=== PATIENT | female | born 1980 | race Caucasian/White ===

== ENCOUNTER 2021-09-06 12:21 | Emergency (ER) | payer BC, SELFPAY ==
[2021-09-06 14:01] VITALS: BP 127/73; PULSE 95; RESP 14; TEMP 36.8; O2SAT 100; BMI 23.3
[2021-09-06 14:22] LABS: Apearance,Urine Cloudy (Clear); Color,Urine Yellow (Yellow); Glucose,Urine (UA) Negative (Negative); PH,Urine 8.5 (5.0-8.5); Protein,Urine Trace (Negative); Specific Gravity, Urine 1.015 (1.005-1.030)
[2021-09-06 14:23] LABS: Bilirubin,Urine Negative (Negative); Blood, Urine 2+ (Negative); Ketones,Urine Negative (Negative); UTC Leukocyte Esterase,Urine 2+ (Negative); UTC Nitrate,Urine Negative (Negative); Urobilinogen,Urine 0.2 EU/dl (0.2)
--- NOTE | 2021-09-06 14:35 | HMH.EDUTC ---
[facility] [place] Disposition Clinical Impression: UTI (urinary tract infection) Qualifiers: Urinary tract infection type: site unspecified Hematuria presence: with hematuria Qualified Code(s): N39.0 - Urinary tract infection, site not specified Disposition: Home, Self-Care Condition on Discharge: Good Instructions: Urinary Tract Infection, DI for Urinary Tract Infection (UTI) Additional Instructions: Drink plenty of fluids. Take tylenol or ibuprofen for pain or fever. Take the medications as directed. Follow up with your regular doctor. GO TO THE ER FOR ANY WORSENING SYMPTOMS The pyridium will make your urine turn orange, this is an expected side effect. It will stain your clothes if it comes into contact with them. Prescriptions: Ondansetron [Zofran 4mg ODT] 4 mg PO Q8HP PRN #12 tab PRN Reason: Nausea Transmission Status: Received by [id number] Sulfamethoxazole/Trimethoprim [Bactrim DS tablet] 1 each PO BID 7 Days #14 tab Transmission Status: Received by [id number] Phenazopyridine HCl [Pyridium 200mg Tablet] 200 pow PO TID #6 tab Transmission Status: Received by [id number] Referrals: Herve Johnson MD [Primary Care Provider] - Forms: Work/School Release Time of Disposition: 14:50 Medical Decision Making - Medical Records Medical records reviewed: No: I reviewed the patient's medical records. - Aidan Inquiry Pt receiving controlled substance: No Vital Signs: 09/06/21 14:01 09/06/21 14:53 Temperature 98.2 F 98.2 F Temperature Source Oral Pulse Rate 95 H Pulse Rate [Left] 95 H Respiratory Rate 14 14 Blood Pressure 127/73 Blood Pressure [Right Arm] 127/73 Blood Pressure Mean [Right Arm] 91 02 Sat by Pulse Oximetry 100 - Lab Data Lab results reviewed: Yes: I reviewed the patient's lab results. Lab Results 09/06/21 14:05: Urine Color Yellow, Urine Appearance Cloudy, Urine pH 8.5, Ur Specific [place] 1.015, Urine Protein Trace, Urine Glucose (UA) Negative, Urine Ketones Negative, Urine Blood 2+, Urine Nitrate Negative, Urine Bilirubin Negative, Urine Urobilinogen 0.2, Ur Leukocyte Esterase 2+ A Orders (Tests/Meds): ORDERS Category Date Time Status Urine Culture Stat Micro 09/06/21 14:11 Received [facility] [place] HPI - General Stated complaint: possible uti Time Seen by Provider: 09/06/21 14:35 Mode of Arrival: Ambulatory Source of Information: Patient Limitations: No Limitations Description of Symptoms (Recalled from Triage Doc. by RN): pt c/o urinary urgency, pressure and pain with urination. since yesterday. HEENT Symptoms (Recalled from RN notes): No Resp Symptoms (Recalled from RN notes): No Skin Symptoms (Recalled from RN notes): No MS Symptoms (Recalled from RN notes): No Functional Status (Recalled from RN notes): na - History of Present Illness Provider Complaint: She c/o low back pain and burning with urination for the past 2 days. She gets uti's occasionally. She denies any fever or chills. - Related Data Previous Rx's Medication Instructions Recorded norgestimate-ethinyl estradiol 1 tab PO DAILY #84 tab 12/02/20 0.18 mg/0.215mg/0.25mg-35 mcg(28)tablet Ondansetron [Zofran 4mg ODT] 4 mg PO Q8HP PRN #12 tab 09/06/21 Phenazopyridine HCl [Pyridium 200 pow PO TID #6 tab 09/06/21 200mg Tablet] Sulfamethoxazole/Trimethoprim 1 each PO BID 7 Days #14 tab 09/06/21 [Bactrim DS tablet] Allergies Allergy/AdvReac Type Severity Reaction Status Date / Time Influenza Virus Vaccines Allergy Severe Hives, Verified 01/03/21 16:32 Swelling, Burning sensation in bones morphine Allergy Intermediate UNKNOWN Verified 01/03/21 16:32 - Worker's Comp Is this a Worker's Comp case?: No [facility] History - Hepatitis A Screen Drug use history?: No High risk sexual behaviors?: No History of sexually transmitted infection?: No Currently employed?: No Childcare worker?: No Do you have indoor
[2021-09-06 14:53] VITALS: BP 127/73; PULSE 95; RESP 14; TEMP 36.8
== END 2021-09-06 14:54 | disposition home or self-care (01) ==
PROVIDERS: Emergency Provider Nurse Practitioner Family; PCP Family Medicine
DX: N30.00 Acute cystitis without hematuria (principal)
CPT/HCPCS: 81003; 87086; 87088; 87186; 99202; G0463

== ENCOUNTER → 2022-01-15 10:46 | Outpatient (CLI) | payer BC, SELFPAY ==
--- NOTE | 2022-01-15 12:21 | CT_ITS ---
PROCEDURE INFORMATION: Exam: CT Abdomen And Pelvis Without Contrast Exam date and time: 01/15/2022 12:39 PM Age: 41 years old Clinical indication: Abdominal pain; Localized; Right lower quadrant (rlq); Patient HX: Lower right abd pain. Poss appy. TECHNIQUE: Imaging protocol: Computed tomography of the abdomen and pelvis without contrast. Radiation optimization: All CT scans at this facility use at least one of these dose optimization techniques: automated exposure control; mA and/or kV adjustment per patient size (includes targeted exams where dose is matched to clinical indication); or iterative reconstruction. Other contrast: Oral, gastroview, 20; COMPARISON: No relevant prior studies available. FINDINGS: Liver: Normal. No mass. Gallbladder and bile ducts: Normal. No calcified stones. No ductal dilation. Pancreas: Normal. No ductal dilation. Spleen: Unremarkable. Adrenal glands: Normal. No mass. Kidneys and ureters: Normal. No hydronephrosis. Stomach and bowel: Unremarkable. No obstruction. No mucosal thickening. Appendix: No evidence of appendicitis. Intraperitoneal space: No evidence of free fluid in the cul-de-sac. Vasculature: Unremarkable. No abdominal aortic aneurysm. Lymph nodes: Unremarkable. No enlarged lymph nodes. Urinary bladder: Unremarkable as visualized. Reproductive: Anteverted uterus. Bones/joints: Unremarkable. No acute fracture. Soft tissues: Unremarkable. IMPRESSION: Unremarkable CT of the abdomen and pelvis.
== END ==
PROVIDERS: PCP Family Medicine; Visit Provider Nurse Practitioner Family
DX: R10.9 Unspecified abdominal pain (principal)
CPT/HCPCS: 74176

== ENCOUNTER → 2022-07-24 14:44 | Outpatient (POV) | payer BC, SELFPAY | PROVIDERS: Visit Provider Dermatology | DX: Z00.00 Encounter for general adult medical examination without abnormal findings (principal) ==

== ENCOUNTER → 2022-08-03 16:49 | Outpatient (CLI) | payer BC, SELFPAY ==
--- NOTE | 2022-08-03 16:49 | MM_ITS ---
PROCEDURE INFORMATION: Exam: Bilateral Screening 3D Mammography Exam date and time: 08/03/2022 4:43 PM Age: 42 years old Clinical indication: Baseline. No family history of breast cancer. mammogram TECHNIQUE: Imaging protocol: Bilateral Screening tomosynthesis and 2D mammography including computer-aided detection (CAD) when performed. COMPARISON: No relevant prior studies available. FINDINGS: MAMMOGRAPHY: Breast composition: The breasts are heterogeneously dense, which may obscure small masses. Mass: None. Architectural distortion: None. Calcifications: No suspicious calcifications. Asymmetric density: None. Skin thickening: None. Axillary adenopathy: None. Implants: Subpectoral silicone implants. Contours are unremarkable. IMPRESSION: No mammographic evidence of malignancy. Annual screening is recommended unless otherwise clinically indicated. ASSESSMENT: BI-RADS Category 1: Negative
== END ==
PROVIDERS: PCP Family Medicine; Visit Provider Nurse Practitioner Obstetrics & Gynecology
DX: Z12.31 Encounter for screening mammogram for malignant neoplasm of breast (principal); Z98.82 Breast implant status
CPT/HCPCS: 77063; 77067

== ENCOUNTER 2024-03-24 07:57 | Outpatient (CLI) | payer BC, SELFPAY ==
[2024-03-24 08:53] LABS: Chol/HDL Ratio 2.6 (1-3.5); Cholesterol 207 mg/dl (140-200); HDL Cholesterol 81 mg/dl (40-60); Triglycerides 156 mg/dl (30-150); VLDL Cholesterol 31 mg/dL (0-40)
[2024-03-24 09:04] LABS: Direct LDL Cholesterol 104.16 mg/dL (100-129)
--- NOTE | 2024-03-24 09:45 | MM_ITS ---
PROCEDURE INFORMATION: Exam: MG Bilateral Screening 3D Mammography Exam date and time: 03/24/2024 9:42 AM Age: 44 years old Clinical indication: Screening. No family history of breast cancer. TECHNIQUE: Imaging protocol: Bilateral Screening tomosynthesis and 2D mammography including computer-aided detection (CAD) when performed. COMPARISON: MG MM DIG SC MAMM IMPLANT BI CAD 08/03/2022 4:43 PM FINDINGS: MAMMOGRAPHY: Breast composition: The breasts are heterogeneously dense, which may obscure small masses. Mass: None. Architectural distortion: None. Calcifications: No suspicious calcifications. Asymmetric density: None. Skin thickening: None. Axillary adenopathy: None. Implants: Subpectoral silicone implants, contours are unremarkable. IMPRESSION: No mammographic evidence of malignancy. Annual screening is recommended unless otherwise clinically indicated. ASSESSMENT: BI-RADS Category 1: Negative
[2024-03-25 08:28] LABS: FSH 3.3 mIU/mL (.); LH 7.8 mIU/mL (.)
== END 2024-03-24 23:59 | disposition home or self-care (01) ==
LOC: RAD 07:58
PROVIDERS: PCP Family Medicine; Visit Provider Nurse Practitioner Obstetrics & Gynecology
DX: Z01.419 Encounter for gynecological examination (general) (routine) without abnormal findings (principal); Z12.31 Encounter for screening mammogram for malignant neoplasm of breast
CPT/HCPCS: 36415; 77063; 77067; 80061; 83001; 83002

== ENCOUNTER 2025-08-13 12:55 | Outpatient (CLI) | payer BC, SELFPAY ==
--- OUTSIDE RECORDS SUMMARY | 2025-08-16 13:06 | XMS_ITS | Patient Health Record ---
[facility] [address] [place] [id number] Care Team Providers Care Oil Winterizer Name Role Phone Herve Johnson Primary Care Provider Allergies Allergen (clinical drug ingredient) Drug/Non Drug Allergy documented on EMR Reaction Allergy Type Onset Date Status Flu Virus Vaccine hives Drug Allergy Active Reason For Referral No Information Medications Medication SIG (Take, Route, Frequency, Duration) Notes Start Date End Date Status SUMAtriptan Succinate 100 MG 1 tab(s) orally once for headache, may repeat dose in 2 hours 12/19/2020 Active Tri-Sprintec 0.18/0.215/0.25 MG-35 MCG 1 tab(s) orally once a day Active Immunizations Vaccine Route Administration Date Status Comme nts Fluzone Quad (6months&older) Unknown 08/10/2016 Administered Hepatitis A (adult) IM Intramuscular 07/15/2018 Administer ed Hepatitis A (adult) IM Intramuscular 02/17/2019 Administer ed Problems Problem Type SNOMED Code ICD Code Onset Dates Problem Status W/U Status Risk Notes Problem Mixed hyperlipidemia (784241577) Mixed hyperlipidemia (E78.2) Active confirmed Plan Of Treatment No Information Insurance Providers Payer Name Payer Address Payer Phone Subscriber Number Group Number Insured Name Patient Relationship to Insured Coverage Start Date Coverage End Date [employer] [id number] [place] [address] [id number] Nathanael Fisher Self - patient is the insured Medications Administered Medication Instructions Date of Administration Dosage Notes Dexamethasone 01/27/2020 1 mL Medical (General) History Medical History History ICD Code Strong family history of thyroid conditi ons, including mother with cancer [employer]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
== END 2025-08-13 23:59 ==
LOC: LAB.DROPOF 08-16 12:56
PROVIDERS: PCP Family Medicine; Visit Provider Student in an Organized Health Care Education/Training Program
DX: N39.0 Urinary tract infection, site not specified (principal)
CPT/HCPCS: 87086; 87088; 87186